=== PATIENT | female | born 2005 | race African-American/Black ===

== ENCOUNTER 2024-05-31 01:15 | Emergency (ER) | payer MEDICAID ==
[~2024-05-31] VITALS: Ht 160 cm; Wt 63.0 kg
[2024-05-31 01:36] VITALS: BP 116/56; PULSE 60; RESP 14; TEMP 98.2; O2SAT 100
[2024-05-31] MEDS ORDERED: CLOT15CR27 TP (05:03)
== END 2024-05-31 06:57 | disposition home or self-care (01) ==
LOC: ER 01:25
DX: B36.0 Pityriasis versicolor (principal); Z98.890 Other specified postprocedural states
CPT/HCPCS: 99282